=== PATIENT | male | born 1955 ===

== ENCOUNTER 2023-08-07 13:09 | Inpatient (IN) ==
[2023-08-07] MEDS: Norepinephrine 16MCG/ML IVPREMIX 4,000 MCG/250 ML D5W BAG IV SCH ×2 (14:35→18:32)
[2023-08-07] MEDS ORDERED: Midazolam PREMIXBAG 1 MG/ML NS 100 ML IV ONE (15:02)
[2023-08-07] MEDS ORDERED: Norepinephrine 4 MG/250mL D5W 4,000 MCG/250 ML BAG IV ONE (15:02)
[2023-08-07] MEDS: Midazolam PREMIXBAG 1 MG/ML NS 100 ML IV SCH (15:20)
[2023-08-07] MEDS ORDERED: Magnesium Sulfate 2 gm BAG 2 GM/50 ML BAG ONE (15:31)
[2023-08-07] MEDS ORDERED: Magnesium Sulfate 2 gm BAG 2 GM/50 ML BAG IVPB ONE (15:57)
[2023-08-07] MEDS ORDERED: CALCIUM GLUCONATE 1GM/50ML NS 1 GM/50 ML BAG IV ONE (15:58)
[2023-08-07] MEDS ORDERED: Vancomycin per Pharmacy 1 EA NOTE FOLLOW UP SCH (16:00)
[2023-08-07] MEDS ORDERED: Zosyn per Pharmacy NOTE FOLLOW UP SCH (16:00)
[2023-08-07 16:17] LABS: ABS Lymphocytes 0.9 10^3/uL (1.0-4.8); ABS Monocytes 0.3 10^3/uL (0.0-1.1); ABS Neutrophils 13.4 10^3/uL (1.5-7.6); ABS Nucleated RBC 0.02 10^3/ul; Eosinophil % 0.3 %; Hematocrit 43.9 % (38-53); Lymphocyte % 5.9 %; Mean Corpuscular Hemoglobin 33.3 pg (27-33); Mean Corpuscular Hgb Conc 34.3 g/dL (31-36); Mean Corpuscular Volume 97.2 fL (80-97); Mean Platelet Volume 6.6 fL (7.5-11.2); Nucleated Red Blood Cells % 0.1 %/100WBC (0.0-0.8); Platelet Count 174 10^3/uL (150-450); Red Blood Count 4.51 10^6/uL (4.06-5.63); Red Cell Distribution Width 14.2 % (12-17); White Blood Count 14.7 10^3/uL (3.6-10.2)
[2023-08-07 16:18] LABS: PCO2 Arterial 49 mmHg (35-45); PO2 Arterial 99 mmHg (80-100)
[2023-08-07] MEDS: PHENYLEPHRINE DRIP IVPREMIX 50 MG/250 ML BAG IV SCH (16:20)
[2023-08-07 16:21] LABS: Blood Urea Nitrogen 19 mg/dL (6-24); CO2 Carbon Dioxide 23 mmol/L (22-32); Calcium 8.5 mg/dL (8.6-10.3); Chloride 106 mmol/L (101-111); Creatinine, Serum 1.58 mg/dL (0.67-1.17); Glucose 166 mg/dL (70-100); High Sens Troponin Baseline 19997 pg/mL (<20); Magnesium 2.3 mg/dL (1.9-2.7); Sodium 139 mmol/L (135-145); eGFR CKD-EPI 47.1 (>60)
[2023-08-07 16:23] LABS: Anion Gap 10 mmol/L (2-16)
[2023-08-07] MEDS ORDERED: Amiodarone 150 mg IVPREMIX 150 MG/100 ML BAG IV ONE (16:41)
[2023-08-07] MEDS ORDERED: .Amiodarone 24HR ONLY IV Protocol Order Note IV ONE (16:41)
[2023-08-07] MEDS ORDERED: Norepinephrine 4 MG/250mL NS 4,000 MCG/250 ML BAG IV SCH ×2 (17:00→18:00)
[2023-08-07] MEDS ORDERED: PHENYLEPHRINE DRIP IVPREMIX 50 MG/250 ML BAG IV SCH (17:00)
[2023-08-07] MEDS ORDERED: Enoxaparin 40 MG/0.4 ML SYR SUBCUT SCH (17:00)
[2023-08-07 17:29] LABS: ALT 65 U/L (7-52); Albumin/Globulin Ratio 1.5 (1-3); Alkaline Phosphatase 107 U/L (35-149); Globulin 2.6 g/dL (2-4); Total Bilirubin 0.9 mg/dL (0.2-1.0); Total Protein 6.6 g/dL (6.4-8.9)
[2023-08-07] MEDS: fentaNYL INFUSION 50 mcg/mL VL 2,500 MCG/50 ML VIAL IV SCH (18:15)
[2023-08-07] MEDS: Amiodarone 360 MG IVPREMIX 360 MG/200 ML BAG IV SCH ×2 (18:20→21:24)
[2023-08-07] MEDS ORDERED: Vancomycin 1,250 MG in NS 0.9% 250 ml 250 ML IVPB ONE (19:00)
[2023-08-07] MEDS: ZOSYN 3.375 GM Q8H per EXTENDED INFUSION IV SCH (19:51)
[2023-08-07] MEDS: Chlorhexidine MOUTHWASH 0.12% 15 ML UDC SWISH SPIT SCH ×2 (19:51→21:25)
[2023-08-07] MEDS: Pantoprazole VIAL 40 MG VIAL IV SCH (20:25)
[2023-08-07 20:46] LABS: AST Redraw 283 U/L (13-39); Direct Bilirubin 0.2 mg/dL (0.03-0.18); Indirect Bilirubin 0.9 mg/dL (0.3-1.0); Phosphorus 2.9 mg/dL (2.5-5.0); Potassium Redraw 4.2 mmol/L (3.5-5.0); Total Bilirubin 1.1 mg/dL (0.2-1.0)
[2023-08-07 21:00] LABS: High Sensitivity Troponin 1 Hr > 24000 pg/mL (<20)
[2023-08-07] MEDS ORDERED: Propofol 10 mg/ml 100 ML BTL 1,000 MG/100 ML BTL IV SCH (23:00)
[2023-08-08] MEDS: Amiodarone 360 MG IVPREMIX 360 MG/200 ML BAG IV SCH ×3 (00:20→18:25)
[2023-08-08] MEDS: Chlorhexidine MOUTHWASH 0.12% 15 ML UDC SWISH SPIT SCH ×6 (01:00→21:42)
[2023-08-08] MEDS: ZOSYN 3.375 GM Q8H per EXTENDED INFUSION IV SCH ×3 (03:04→19:39)
[2023-08-08 04:15] LABS: PCO2 Arterial 30 mmHg (35-45); PO2 Arterial 191 mmHg (80-100)
[2023-08-08 04:21] LABS: Urine Appearance Cloudy; Urine Bilirubin Negative (Negative); Urine Blood 2+ (Negative); Urine Color Yellow; Urine Glucose Negative (Negative); Urine Ketones Negative (Negative); Urine Nitrite Negative (Negative); Urine Protein 1+(30 mg/dL) (Negative); Urine Urobilinogen Negative (Negative)
[2023-08-08 04:26] LABS: Budding Yeast Present (Absent); Urine Bacteria Absent (Absent); Urine Granular Casts Present (Absent); Urine Red Blood Cell 3+(>10/hpf) (Absent); Urine Squamous Epithelial Cell Present (Absent); Urine White Blood Cell 2+(11-20/hpf) (Absent); Urine Yeast Present (Absent)
[2023-08-08 04:35] LABS: ABS Lymphocytes 0.4 10^3/uL (1.0-4.8); ABS Monocytes 0.5 10^3/uL (0.0-1.1); ABS Neutrophils 13.2 10^3/uL (1.5-7.6); ABS Nucleated RBC 0.01 10^3/ul; Hematocrit 41.6 % (38-53); Hemoglobin 14.5 g/dL (13.2-16.3); Mean Corpuscular Hemoglobin 33.3 pg (27-33); Mean Corpuscular Hgb Conc 34.8 g/dL (31-36); Mean Corpuscular Volume 95.7 fL (80-97); Mean Platelet Volume 6.8 fL (7.5-11.2); Platelet Count 151 10^3/uL (150-450); Red Blood Count 4.34 10^6/uL (4.06-5.63); Red Cell Distribution Width 14.3 % (12-17); White Blood Count 14.2 10^3/uL (3.6-10.2)
[2023-08-08 04:36] LABS: Calcium 8.4 mg/dL (8.6-10.3); Creatinine, Serum 2.44 mg/dL (0.67-1.17); Magnesium 2.3 mg/dL (1.9-2.7); Phosphorus 2.8 mg/dL (2.5-5.0); Potassium 4.6 mmol/L (3.5-5.0); eGFR CKD-EPI 27.9 (>60)
[2023-08-08] MEDS ORDERED: Lactated Ringers 1000 ml BAG 1,000 ML IV SCH (05:00)
[2023-08-08] MEDS: Vancomycin 750 MG in NS 0.9% 250 ML IVPB SCH ×2 (08:00→19:53)
[2023-08-08 08:32] LABS: Albumin 3.5 g/dL (3.2-5.2); Albumin/Globulin Ratio 1.7 (1-3); Direct Bilirubin 0.2 mg/dL (0.03-0.18); Globulin 2.1 g/dL (2-4); Indirect Bilirubin 0.6 mg/dL (0.3-1.0); Total Bilirubin 0.8 mg/dL (0.2-1.0); Total Protein 5.6 g/dL (6.4-8.9)
[2023-08-08] MEDS ORDERED: Lactated Ringers 1000 ml BAG 1,000 ML IV ONE (08:49)
[2023-08-08] MEDS: Midazolam PREMIXBAG 1 MG/ML NS 100 ML IV SCH ×2 (10:27→10:35)
[2023-08-08] MEDS: Pantoprazole VIAL 40 MG VIAL IV SCH (10:41)
[2023-08-08] MEDS: Enoxaparin 30 MG/0.3 ML SYR SUBCUT SCH (18:26)
[2023-08-08 21:42] LABS: High Sensitivity Troponin 1 Hr > 24000 pg/mL (<20)
[2023-08-09] MEDS: Chlorhexidine MOUTHWASH 0.12% 15 ML UDC SWISH SPIT SCH ×6 (01:12→22:01)
[2023-08-09] MEDS: fentaNYL INFUSION 50 mcg/mL VL 2,500 MCG/50 ML VIAL IV SCH (01:44)
[2023-08-09] MEDS: ZOSYN 3.375 GM Q8H per EXTENDED INFUSION IV SCH ×2 (03:09→11:29)
[2023-08-09] MEDS: Midazolam PREMIXBAG 1 MG/ML NS 100 ML IV SCH (04:09)
[2023-08-09 04:27] LABS: PCO2 Arterial 33 mmHg (35-45); PO2 Arterial 97 mmHg (80-100)
[2023-08-09 04:32] LABS: ABS Lymphocytes 0.7 10^3/uL (1.0-4.8); ABS Monocytes 0.8 10^3/uL (0.0-1.1); ABS Neutrophils 13.7 10^3/uL (1.5-7.6); ABS Nucleated RBC 0.01 10^3/ul; Hematocrit 35.1 % (38-53); Hemoglobin 12.2 g/dL (13.2-16.3); Lymphocyte % 4.7 %; Mean Corpuscular Hgb Conc 34.7 g/dL (31-36); Mean Corpuscular Volume 95.1 fL (80-97); Mean Platelet Volume 7.3 fL (7.5-11.2); Nucleated Red Blood Cells % 0.1 %/100WBC (0.0-0.8); Platelet Count 109 10^3/uL (150-450); Red Blood Count 3.69 10^6/uL (4.06-5.63); Red Cell Distribution Width 14.6 % (12-17); White Blood Count 15.3 10^3/uL (3.6-10.2)
[2023-08-09 04:49] LABS: Albumin/Globulin Ratio 1.3 (1-3); Calcium 7.9 mg/dL (8.6-10.3); Creatinine, Serum 3.55 mg/dL (0.67-1.17); Globulin 2.3 g/dL (2-4); Magnesium 2.1 mg/dL (1.9-2.7); Potassium 5.1 mmol/L (3.5-5.0); Total Bilirubin 0.7 mg/dL (0.2-1.0); Total Protein 5.3 g/dL (6.4-8.9); eGFR CKD-EPI 17.8 (>60)
[2023-08-09] MEDS ORDERED: Vancomycin Trough Check NOTE FOLLOW UP ONE (07:30)
[2023-08-09] MEDS: Pantoprazole VIAL 40 MG VIAL IV SCH (08:15)
[2023-08-09] MEDS ORDERED: Lactated Ringers 1000 ml BAG 1,000 ML IV ONE (09:19)
[2023-08-09] MEDS: Vancomycin 750 MG in NS 0.9% 250 ML IVPB SCH (11:09)
[2023-08-09] MEDS ORDERED: Furosemide 40 mg/4 ml IV VIAL IV SLOW PU ONE (12:37)
[2023-08-09] MEDS ORDERED: Amiodarone 400 mg TAB PO SCH ×2 (13:00)
[2023-08-09] MEDS: Amiodarone 400 mg TAB NG TUBE SCH ×2 (13:38→22:01)
[2023-08-09 17:48] LABS: Activated Partial Thrombo Time 26.8 seconds (26.0-38.0); INR 1.19 (0.83-1.13)
[2023-08-09 17:50] LABS: Platelet Count 91 10^3/uL (150-450)
[2023-08-09] MEDS: Enoxaparin 30 MG/0.3 ML SYR SUBCUT SCH (18:21)
[2023-08-09] MEDS: ZOSYN 3.375 GM Q12H per EXTENDED INFUSION IV SCH (22:31)
[2023-08-09] MEDS ORDERED: Norepinephrine 4 MG/250mL D5W 4,000 MCG/250 ML BAG IV ONE (23:58)
[2023-08-10] MEDS: Norepinephrine 16MCG/ML IVPREMIX 4,000 MCG/250 ML D5W BAG IV SCH (00:01)
[2023-08-10] MEDS ORDERED: Acetaminophen IV 1 GM/100ML 1,000 MG/100 ML BAG IV ONE (00:23)
[2023-08-10] MEDS: Acetaminophen IV 1 GM/100ML 1,000 MG/100 ML BAG IV PRN ×2 (00:25→19:17)
[2023-08-10] MEDS ORDERED: Amiodarone 150 mg IVPREMIX 150 MG/100 ML BAG IV ONE (00:42)
[2023-08-10] MEDS: Chlorhexidine MOUTHWASH 0.12% 15 ML UDC SWISH SPIT SCH ×6 (01:48→21:09)
[2023-08-10] MEDS: Midazolam PREMIXBAG 1 MG/ML NS 100 ML IV SCH (03:58)
[2023-08-10 05:10] LABS: Albumin/Globulin Ratio 1.3 (1-3); Calcium 7.9 mg/dL (8.6-10.3); Creatinine, Serum 4.75 mg/dL (0.67-1.17); Globulin 2.4 g/dL (2-4); Magnesium 2.2 mg/dL (1.9-2.7); Phosphorus 4.2 mg/dL (2.5-5.0); Potassium 4.6 mmol/L (3.5-5.0); Total Bilirubin 0.8 mg/dL (0.2-1.0); Total Protein 5.4 g/dL (6.4-8.9); eGFR CKD-EPI 12.6 (>60)
[2023-08-10 05:53] LABS: ABS Lymphocytes 0.8 10^3/uL (1.0-4.8); ABS Monocytes 0.5 10^3/uL (0.0-1.1); ABS Neutrophils 10.1 10^3/uL (1.5-7.6); ABS Nucleated RBC 0.01 10^3/ul; Eosinophil % 0.1 %; Hematocrit 30.8 % (38-53); Hemoglobin 10.8 g/dL (13.2-16.3); Lymphocyte % 7.3 %; Mean Corpuscular Hemoglobin 33.7 pg (27-33); Mean Corpuscular Hgb Conc 35.2 g/dL (31-36); Mean Corpuscular Volume 95.7 fL (80-97); Mean Platelet Volume 7.5 fL (7.5-11.2); Nucleated Red Blood Cells % 0.1 %/100WBC (0.0-0.8); Platelet Count 90 10^3/uL (150-450); Red Blood Count 3.22 10^6/uL (4.06-5.63); Red Cell Distribution Width 14.6 % (12-17); White Blood Count 11.5 10^3/uL (3.6-10.2)
[2023-08-10] MEDS ORDERED: Vancomycin Random Level NOTE FOLLOW UP ONE (06:00)
[2023-08-10] MEDS: Amiodarone 360 MG IVPREMIX 360 MG/200 ML BAG IV SCH ×3 (09:44→17:38)
[2023-08-10] MEDS: Pantoprazole VIAL 40 MG VIAL IV SCH (09:44)
[2023-08-10 10:09] LABS: Resp Rate 18
[2023-08-10 10:11] LABS: PCO2 Arterial 27 mmHg (35-45); PO2 Arterial 102 mmHg (80-100)
[2023-08-10] MEDS: ZOSYN 3.375 GM Q12H per EXTENDED INFUSION IV SCH ×2 (11:24→23:13)
[2023-08-10] MEDS: PHENYLEPHRINE DRIP IVPREMIX 50 MG/250 ML BAG IV SCH ×2 (11:30→18:26)
[2023-08-10] MEDS ORDERED: Furosemide 40 mg/4 ml IV VIAL IV SLOW PU ONE (12:34)
[2023-08-10] MEDS ORDERED: Vancomycin 750 MG in NS 0.9% 250 ML IVPB ONE (13:00)
[2023-08-10] MEDS: Magnesium Hydroxide LIQ 30 ML UDC PO SCH (19:55)
[2023-08-11] MEDS: Midazolam PREMIXBAG 1 MG/ML NS 100 ML IV SCH ×2 (00:53→17:08)
[2023-08-11] MEDS: Chlorhexidine MOUTHWASH 0.12% 15 ML UDC SWISH SPIT SCH ×6 (00:54→21:07)
[2023-08-11] MEDS: Amiodarone 360 MG IVPREMIX 360 MG/200 ML BAG IV SCH (03:19)
[2023-08-11 04:39] LABS: ABS Basophils 0.1 10^3/uL (0.0-0.1); ABS Lymphocytes 0.8 10^3/uL (1.0-4.8); ABS Monocytes 0.5 10^3/uL (0.0-1.1); ABS Neutrophils 9.9 10^3/uL (1.5-7.6); ABS Nucleated RBC 0.01 10^3/ul; Eosinophil % 0.2 %; Hematocrit 31.3 % (38-53); Hemoglobin 10.8 g/dL (13.2-16.3); Lymphocyte % 7.3 %; Mean Corpuscular Hemoglobin 33.4 pg (27-33); Mean Corpuscular Hgb Conc 34.6 g/dL (31-36); Mean Corpuscular Volume 96.7 fL (80-97); Mean Platelet Volume 7.5 fL (7.5-11.2); Platelet Count 84 10^3/uL (150-450); Red Blood Count 3.24 10^6/uL (4.06-5.63); Red Cell Distribution Width 14.6 % (12-17); White Blood Count 11.4 10^3/uL (3.6-10.2)
[2023-08-11 05:18] LABS: Vancomycin Random 19.7 mcg/mL
[2023-08-11 05:58] LABS: Albumin/Globulin Ratio 1.2 (1-3); Creatinine, Serum 5.38 mg/dL (0.67-1.17); Globulin 2.5 g/dL (2-4); Magnesium 2.3 mg/dL (1.9-2.7); Potassium 4.2 mmol/L (3.5-5.0); Total Bilirubin 0.9 mg/dL (0.2-1.0); Total Protein 5.5 g/dL (6.4-8.9); eGFR CKD-EPI 10.8 (>60)
[2023-08-11] MEDS ORDERED: Vancomycin Random Level NOTE FOLLOW UP ONE (06:00)
[2023-08-11] MEDS: Magnesium Hydroxide LIQ 30 ML UDC PO SCH ×2 (07:57→21:07)
[2023-08-11] MEDS: Pantoprazole VIAL 40 MG VIAL IV SCH (08:01)
[2023-08-11] MEDS ORDERED: Furosemide 40 mg/4 ml IV VIAL IV SLOW PU ONE (08:45)
[2023-08-11] MEDS: ZOSYN 3.375 GM Q12H per EXTENDED INFUSION IV SCH ×2 (11:04→23:55)
[2023-08-11 14:09] LABS: High Sensitivity Troponin 1 Hr 7614 pg/mL (<20)
[2023-08-11] MEDS ORDERED: Amiodarone 150 mg IVPREMIX 150 MG/100 ML BAG IV ONE (14:20)
[2023-08-11] MEDS ORDERED: Metoprolol Tartrate 5 mg VIAL 5 ml VIAL (1 mg/ml) IV ONE ×2 (14:20→15:52)
[2023-08-11] MEDS ORDERED: Digoxin IV 0.5 MG/2 ML AMP (0.25 MG/ML) IV SLOW PU ONE ×2 (15:04→15:09)
[2023-08-11 15:19] LABS: Resp Rate 18
[2023-08-11 15:23] LABS: PCO2 Arterial 22 mmHg (35-45); PO2 Arterial 121 mmHg (80-100)
[2023-08-11] MEDS: Acetaminophen IV 1 GM/100ML 1,000 MG/100 ML BAG IV PRN (18:19)
[2023-08-11] MEDS: Amiodarone 400 mg TAB PO SCH (21:07)
[2023-08-11] MEDS ORDERED: Rocuronium 50 mg VIAL 10 mg/ml 5 ml VIAL (50 mg) IV ONE (22:11)
[2023-08-11] MEDS ORDERED: Rocuronium 50 mg VIAL 10 mg/ml 5 ml VIAL (50 mg) ONE (22:16)
[2023-08-12] MEDS: Chlorhexidine MOUTHWASH 0.12% 15 ML UDC SWISH SPIT SCH ×3 (00:46→10:51)
[2023-08-12] MEDS: Midazolam PREMIXBAG 1 MG/ML NS 100 ML IV SCH (02:58)
[2023-08-12] MEDS ORDERED: Vancomycin Random Level NOTE FOLLOW UP ONE (06:00)
[2023-08-12] MEDS: PHENYLEPHRINE DRIP IVPREMIX 50 MG/250 ML BAG IV SCH (07:41)
[2023-08-12 08:18] VITALS: BP 107/67
[2023-08-12] MEDS ORDERED: Ondansetron ODT 4 mg TAB 4 MG TAB SL PRN (10:51)
[2023-08-12] MEDS: Amiodarone 400 mg TAB PO SCH (10:51)
[2023-08-12] MEDS: Atropine 1% (ORAL/SL) 15 ML BTL SL PRN ×2 (11:17→11:38)
[2023-08-12] MEDS: Morphine 2 MG/ML SYRINGE IV PRN ×2 (11:19→11:46)
[2023-08-12] MEDS ORDERED: HYDROmorphone 0.5 MG/0.5 ML SYRINGE IV SLOW PU PRN ×3 (11:27→11:52)
[2023-08-12] MEDS ORDERED: HYDROmorphone 0.5 MG/0.5 ML SYRINGE ONE ×2 (11:30→11:39)
[2023-08-12] MEDS ORDERED: HYDROmorphone 0.5 MG/0.5 ML SYRINGE IV SLOW PU ONE (11:39)
[2023-08-12] MEDS ORDERED: LORazepam 2 mg VIAL 1 ml ONE (11:44)
[2023-08-12] MEDS ORDERED: Lorazepam PYXIS KEY PRN (11:45)
[2023-08-12] MEDS: LORazepam 2 mg VIAL 1 ml IV PUSH PRN ×4 (11:49→20:00)
[2023-08-12] MEDS: HYDROmorphone 0.5 MG/0.5 ML SYRINGE IV SLOW PU PRN ×10 (12:17→23:08)
[2023-08-12] MEDS: fentaNYL INFUSION 50 mcg/mL VL 2,500 MCG/50 ML VIAL IV SCH (22:21)
[2023-08-13] MEDS: HYDROmorphone 0.5 MG/0.5 ML SYRINGE IV SLOW PU PRN (00:21)
[2023-08-13] MEDS ORDERED: HYDROmorphone 1 MG/1 ML SYRINGE IV SLOW PU ONE (00:46)
[2023-08-13] MEDS ORDERED: HYDROmorphone 1 MG/1 ML SYRINGE ONE (00:53)
[2023-08-13] MEDS: LORazepam 2 mg VIAL 1 ml IV PUSH PRN (01:25)
== END 2023-08-13 01:50 | disposition expired | DRG 70 ==
LOC: ICU 14:34
PROVIDERS: ADMIT Internal Medicine Pulmonary Disease; ATTEND Internal Medicine Pulmonary Disease